=== PATIENT | male | born 1955 | race Caucasian/White ===

== ENCOUNTER 2018-03-11 18:57 | Emergency (ER) | payer SELFPAY ==
--- NOTE | 2018-03-11 19:01 | ED Physician Documentation ---
General Adult - HISTORIAN Historian: patient - HPI Stated Complaint: left 3rd finger lac Chief Complaint: Laceration/Recheck/Suture Onset: hours (1) Timing: still present Severity: mild Further Comments: yes (He was cutting plastic with a saw and cut his finger. He denies pain He has no change in ROM. He denies any loss of sensation) Last known Well Code/Unknown Code: Unknown - ROS CONST: no problems - PAST HX Past History: none Other History: none Surgeries/Procedures: other (finger amputation and reattachment ) Allergies/Adverse Reactions: Allergies Allergy/AdvReac Type Severity Reaction Status Date / Time No Known Allergies Allergy Verified 03/11/18 19:13 Home Medications: Ambulatory Orders Medication Instructions Recorded NK 08/08/13 - SOCIAL HX Smoking History: non-smoker Alcohol Use: none Drug Use: none - FAMILY HX Family History: No - VITAL SIGNS Vital Signs: Vital Signs Temp Pulse Resp BP Pulse Ox 98.5 F 77 18 139/81 96 03/11/18 19:07 03/11/18 19:07 03/11/18 19:07 03/11/18 19:07 03/11/18 19:07 - REVIEWED ASSESSMENTS Nursing Assessment Reviewed: Yes Vitals Reviewed: Yes Progress - Progress Progress: 1944: xray result discussed and case discussed with Dr Brown. He will take the pt via ER per Edwina in nursing advisor. DG 1950: Pt is refusing to take Ambulance - DG 2019: reports the pain has decreased 2/10. No nausea. No dizziness. Still refuses ambulance DG ED Results Lab/Radiology - Radiology Radiology Impressions: Left hand, three views History: Table saw injury. Findings: There is a laceration of the distal 3rd digit present with fracture through the distal 3rd phalanx with large osseous defect of along the volar aspect of the phalanx. The remaining osseous structures are normal. Impression: 1. large soft tissue injury with fracture and large osseous defect involving the 3rd distal phalanx. Electronically signed on Mar 11, 2018 7:28:50 PM CDT by: Heriberto Shahid - Orders Orders: ED Orders Category Date Time Status Apply/change dressing NOW Care 03/11/18 19:52 Active Cleanse with NS and Chlorhexid 1T Care 03/11/18 19:28 Active Further Nursing Orders 1T Care 03/11/18 20:20 Ordered IV Started NOW Care 03/11/18 19:43 Active HAND 3 VIEWS OR MORE [RAD] Stat Exams 03/11/18 Taken Morphine Sulfate [DepoDur] Med 03/11/18 19:43 Ordered 2 mg IVP Q2 PRN ceFAZolin SODIUM [Ancef] Med 03/11/18 19:43 Discontinued 1 gm IV NOW ONE General Adult Physical Exam - PHYSICAL EXAM GENERAL APPEARANCE: no distress EENT: eye inspection normal, ENT inspection normal NECK: normal inspection RESPIRATORY: no resp distress, chest non-tender, breath sounds normal CVS: reg rate & rhythm, heart sounds normal, equal pulses, no murmur ABDOMEN: soft, normal bowel sounds, no distension, non-tender BACK: normal inspection, no CVA tenderness SKIN: warm/dry, other (left hand 3rd finger approx 4 cm lac open wrapping around the finger. Pulses + ROM + Sensation + ) EXTREMITIES: non-tender, normal range of motion, no evidence of injury NEURO: oriented X3, CN's nml as tested Discharge Clincal Impression: Major osseous defect of hand Qualifiers: Laterality: left Qualified Code(s): M89.742 - Major osseous defect, left hand Referrals: Jan,DO Venancio [Primary Care Provider] - 2 Days Comments: Dr Brown accepting Pt to go through ER at the [place] - refuses ambulance ride. Condition: Stable Disposition: 02 XFER SHT-TRM HOSP Decision to Admit: NO Date of Decison to Admit: 03/11/18 Decision Time: 19:45
[2018-03-11] MEDS ORDERED: MORPHINE SULFATE 2 MG/ML PREFILLED SYR ONE (19:46)
[2018-03-11] MEDS: MORPHINE SULFATE 2 MG/ML PREFILLED SYR IVP PRN (19:55)
[2018-03-11] MEDS: ceFAZolin SODIUM 1 GM VIAL IV ONE (19:59)
[2018-03-11 20:41] VITALS: BP 124/81
--- NOTE | 2018-03-12 06:44 | Diagnostic Imaging Report ---
DESTINEE GUY [facility] [id number] [facility].[address] [id number] Report Submission Date: Mar 11, 2018 7:28:50 PM CDT Patient Study Name: CARI ALDANA Date: Mar 11, 2018 7:08:26 PM CDT Modality Type: DX Gender: M Description: UPPER EXTREMITY : 57 Institution: [facility] Physician: DESTINEE GUY Left hand, three views History: Table saw injury. Findings: There is a laceration of the distal 3rd digit present with fracture through the distal 3rd phalanx with large osseous defect of along the volar aspect of the phalanx. The remaining osseous structures are normal. Impression: 1. large soft tissue injury with fracture and large osseous defect involving the 3rd distal phalanx. Electronically signed on Mar 11, 2018 7:28:50 PM CDT by: Heriberto MARCOS
== END 2018-03-11 20:39 | disposition short-term general hospital (02) ==
LOC: ED 18:57
DX: M89.742 Major osseous defect, left hand (principal)
CPT/HCPCS: 73130; J0690; J2270; 96374; 96375; 99284; S1016